=== PATIENT | male | born 1965 | race Caucasian/White ===

== ENCOUNTER → 2018-04-10 16:50 | Outpatient (CLI) | payer BC ==
[~2018-04-10 16:50] MED LIST: BAYER CHEWABLE81 MG PO; BENADRYL25 MG PO; LIPITOR80 MG PO; PLAVIX75 MG PO; PRAVACHOL80 MG PO; TOPROL XL50 MG PO; XANAX0.5 MG PO
[2018-04-10 18:23] LABS: CHOL - HDL RATIO 4.9 ratio (2.3-4.9); LDL-HDL RATIO 3.2 ratio (1.5-3.5)
[2018-04-25 07:20] VITALS: BMI 22.4
== END | disposition home or self-care (01) ==
LOC: D.LABREF 16:50
PROVIDERS: Internal Medicine Cardiovascular Disease
DX: E78.5 Hyperlipidemia, unspecified (principal)

== ENCOUNTER → 2018-04-11 12:26 | Outpatient (CLI) | payer BC ==
--- NOTE | ~2018-04-11 | EC ---
PATIENT:JAMES ZARAGOZA DATE OF SERVICE: 04/11/18 SEX: M MEDICAL RECORD: [id number] DATE OF : 69 [facility] AGE OF PATIENT: 52 ADMISSION DATE: 04/11/18 REFERRING PHYSICIAN: INTERPRETING PHYSICIAN: PAULA SANCHEZ MD ECHOCARDIOGRAM REPORT ECHO CHARGES 4 ECHO COMPLETE Date: 04/11 CLINICAL DIAGNOSIS: OLD [place]/ABN EKG,RBBB,HTN ECHOCARDIOGRAPHIC MEASUREMENTS (adult normal given) AC root (d.<3.7cm) 3.2 cm LV Septum d (<1.2 cm> 1.1 cm Valve Excursion 1.8 cm LV Septum (systole) 1.2 cm Left Atria (s.<4.0cm> 3.3 cm LVPW d(<1.2cm) 1.5 cm RV (d.<2.3cm) 3.5 cm LVPW (sytole) 1.9 cm LV diastole(<5.6CM) 4.9 cm MV E-F(>70mm/sec) cm LV systole 3.6 cm LVOT Diameter 2.3 cm MV exc.(>10mm) 1.8 cm Est.ejection fraction (50-75%) % DOPPLER: LVIT cm/sec A 76.0 cm/sec E 96.0 cm/sec LA cm/sec RVSP 24 mmHg LVOT 94 cm/sec AOP1/2T m/s Asc. Ao 131 cm/sec RVOT 67 cm/sec RA cm/sec PA 97 cm/sec AV Gradient Peak 6.86 mmHg AV Mean 3.79 mmHg AV Area 2.8 cm MV Gradient Peak 5.56 mmHg MV Mean 1.90 mmHg MV Area cm COMMENTS: Catcher Plug: 2 WES PASCUAL Perfume And Toilet Water Maker: 4 Dr. Sanchez TAPE# PACS Pericardial Effusion N DATE OF SERVICE: FINDINGS: 1. Left ventricle has mild left ventricular hypertrophy. Overall, ejection fraction lower limits of normal, approximately 50% to 55% with a hint of mild lateral hypokinesis. Inflow characteristics are normal. 2. The left atrium is normal size, normal function. 3. The right ventricle is dilated with normal function. 4. The aortic valve is normal. 5. The mitral valve is normal. ECHOCARDIOGRAM REPORT [id number] JAMES ZARAGOZA 6. The tricuspid valve is normal. 7. The right atrium is mildly dilated. 8. Pulmonic valve is normal. 9. The pericardium is normal. 10. The IVC is normal sized and collapsed appropriately with a sniff test. CONCLUSIONS: The patient has normal to mildly depressed LV systolic function, which may be influenced by his baseline bundle branch block, creating asynchronous wall motion. TRANSINT:[id number] Voice Confirmation ID: [id number] DOCUMENT ID: [id number] PAULA SANCHEZ MD at 0819 CC: [id number] DICTATION DATE: 04/15/18 0753 LAND SURVEYING SURVEY WORKER: 04/15/18 1238 DEP CLI 04/11/18 [facility] [address] [place] [address]
[2018-04-25 07:20] VITALS: BMI 22.4
== END | disposition home or self-care (01) ==
LOC: D.ECHO 12:26
DX: I25.2 Old myocardial infarction (principal); R94.31 Abnormal electrocardiogram [ECG] [EKG]; E78.5 Hyperlipidemia, unspecified; I10 Essential (primary) hypertension; I45.10 Unspecified right bundle-branch block

== ENCOUNTER → 2018-04-25 06:40 | Outpatient (CLI) | payer BC ==
[~2018-04-25] VITALS: Ht 177.8 cm; Wt 70.9 kg
--- NOTE | ~2018-04-25 | HEMODYNAMI ---
PATIENT:JAMES ZARAGOZA MEDICAL RECORD: [id number] : 69 LOCATION:[facility] ADMISSION DATE: 04/25/18 Generatedon:04/25/20189:05 Patient name: JAMES ZARAGOZA Patient #: [id number] SSN: : 1965 Date of study: 04/25/2018 Page: Of Hemodynamic Procedure Report Patient Data Patient Demographics Procedure consent was obtained First Name: JAMES Gender: Male Last Name: NIK : 1965 Patient #: [id number] Age: 52 year(s) Race: Unknown Additional ID: [id number] Contact details [address]: [address] [place] [address] [facility] State: [place] City: [place] Zip code: [address] Past Medical History Allergies: No known allergies Admission Admission Data Admission Date: 04/25/2018 Admission Time: 6:40 Weight (lbs.): 156 Weight (kg.): 70.76 Lab Results Lab Result Date: 04/25/2018 Lab Result Time: 0:00 Biochemistry Name Units Result Min Max BUN mg/dl 9 --(*---)-- 7 18 Creatinine mg/dl 0.8 --(-*--)-- 0.6 1.3 CBC Name Units Result Min Max Hemoglobin g/dl 17.4 --(---*)-- 13.5 17.5 Procedure Procedure Types Cath Procedure Diagnostic Procedure [facility] w/Coronaries Sedation Charges Moderate Sedation up to 15 minutes PCI Procedure Coronary Stent Coronary Stent Initial Procedure Description Procedure Date Procedure Date: 04/25/2018 Procedure Start Time: 8:40 Procedure End Time: 9:04 Procedure Staff Name Function Frederick Simmons MD Performing Physician Alicia Noguera RT Monitor Tova Brown RT Scrub Lee Charles RN Nurse Procedure Data Cath Procedure Fluoroscopy Diagnostic fluoroscopy Total fluoroscopy Time: 3.4 time: 3.4 min min Diagnostic fluoroscopy Total fluoroscopy dose: 396 dose: 396 mGy mGy Contrast Material Contrast Material Type Amount (ml) Isovue 370 40 Entry Location Entry Primary Successful Side Size Upsize Upsize Entry Closure Succes sful Closure Location (Fr) 1 (Fr) 2 (Fr) Remarks Device Remarks Femoral Right 5 Fr 6 Fr Exoseal artery Short Estimated blood loss: 10 ml Diagnostic catheters Device Type Used For End Catheter Placement MULTIPACK JL 4.0 5Fr Left Coronary catheter Angiography MULTIPACK 3DRC 5Fr Right Coronary catheter Angiography MULTIPACK Pigtail 5 Fr LV Angiography catheter Procedure Complications No complications Procedure Medications Medication Administration Route Dosage 0.9% NaCl I.V. 100 ml/hr Oxygen etCO2 Nasal cannula 2 l/min Heparin Flush Bag added to field 2 bags (1000units/500ml NS) Lidocaine 2% added to field 20 Versed I.V. 1 mg Fentanyl I.V. 50 mcg Versed I.V. 1 mg Angiomax (bolus) I.V. 10.5 ml Angiomax Drip I.V. drip 24.5 ml/hr (250mg/50ml NS) (Standard) Plavix P.O. 300 mg Angiomax Drip wasted 24.5 ml/hr (250mg/50ml NS) (Standard) Hemodynamics Rest HGB: 17.4 (g/dl) Heart Rate: 65 (bpm) Pressure Samples Time Site Value (mmHg) Purpose Heart Use Rate(bpm) 8:49 LV 108/-9,11 EDP 65 Gradients Valve Time Site Site Mean SEP/DFP Peak To Heart Use 1 2 (mmHg) (sec/min) Peak Rate (mmHg) (bpm) Aortic 8:49 LV AO 75 Snapshots Pre Cath Intra NCS Post Cath Vital Signs Time Heart Resp SPO2 etCO2 NIBP Rhythm Pain Sedation Rate (ipm) (%) (mmHg) (mmHg) Status Level (bpm) 8:29:48 62 15 100 33 129/74(87) NSR 0 (11) 10(A) , No pain 8:34:25 61 17 100 33 119/75(90) NSR 0 (11) 10(A) , No pain 8:39:01 69 16 100 32.2 116/69(98) NSR 0 (11) 10(A) , No pain 8:43:40 66 14 99 31.4 116/65(90) NSR 0 (11) 10(A) , No pain 8:48:16 68 12 98 35.2 112/65(79) NSR 0 (11) 10(A) , No pain 8:52:55 66 14 98 34.5 117/65(80) NSR 0 (11) 10(A) , No pain 8:57:32 71 13 98 33.7 111/65(80) NSR 0 (11) 10(A) , No pain 9:02:04 67 14 99 36 117/74(88) NSR 0 (11) 10(A) , No pain Medications Time Medication Route Dose Verified Delivered Reason Notes Effectiveness by by 8:28:19 0.9% NaCl I.V. 100 Lee Lee Per physician ml/hr Araceli Charles RN RN 8:28:30 Oxygen etCO2 2 Lee Lee Per physician Nasal l/min Araceli Charles cannula RN RN 8:28:42 Heparin Flush added 2 Lee Lee used for Bag to bags Araceli Charles procedure (1000units/500ml field RN RN NS) 8:28:53 Lidocaine 2% added 20ml Lee Lee for local to vial Araceli Charles anesthetic field RN RN 8:35:57 Versed I.V. 1 mg Lee Lee for sedation Araceli Charles RN RN 8:36:07 Fentanyl I.V. 50 Lee Lee for sedation mcg Araceli Charles RN RN 8:38:30 Versed I.V. 1 mg Lee Lee for sedation Araceli Charles RN RN 8:54:15 Angiomax (bolus) I.V. 10.5 Lee Lee for ml Araceli Charles anticoagulation RN RN 8:54:30 Angiomax Drip I.V. 24.5 Lee Lee for (250mg/50ml NS) drip ml/hr Araceli Charles anticoagulation (Standard) RN RN 9:01:53 Plavix P.O. 300 Lee Lee for mg Araceli Charles antiplatelet RN RN therapy 9:03:01 Angiomax Drip wasted 24.5 Lee Lee to sharp's (250mg/50ml NS) ml/hr Araceli Charles (Standard) RN food assembler kitchen Log Time Note 8:09:48 Signed procedure consent form obtained from patient. 8:09:50 Time tracking: Regular hours (M-F 7:00 - 5:00) 8:09:53 Plan of Care:Hemodynamics will remain stable., Cardiac rhythm will remain stable., Comfort level will be maintained., Respiratory function will remain adequate., Patient/ family verbilizes understanding of procedure., Procedure tolerated without complication., Recovers from procedure without complications.. 8:10:01 H&P Date Dictated: 04/24/2018 Within 30 days and on chart., H&P Addendum completed by physician on day of procedure. (MUST COMPLETE FOR ALL OUTPATIENTS). 8:10:10 Patient allergic to No known allergies 8:11:20 Lab Result : BUN 9 mg/dl 8:11:20 Lab Result : Hemoglobin 17.4 g/dl 8:11:20 Lab Result : Creatinine 0.8 mg/dl 8:12:55 Alicia Counts RT(R) sent for patient. Start room use. 8:15:03 Patient Weight : 156 lbs 8:21:10 Patient received from Pre/Post Procedure Room to CCL 1 Alert and oriented. Tansferred to table in Supine position. 8:21:12 Warm blankets applied, and erin hugger turned on for patient comfort. 8:21:13 Correct patient and procedure confirmed by team. 8:21:14 ECG and BP/O2 sat monitors applied to patient. 8:28:19 0.9% NaCl 100 ml/hr I.V. was administered by Lee Charles RN; Per physician; 8:28:30 Oxygen 2 l/min etCO2 Nasal cannula was administered by Lee Charles RN; Per physician; 8:28:42 Heparin Flush Bag (1000units/500ml NS) 2 bags added to field was administered by Lee Charles RN; used for procedure; 8:28:53 Lidocaine 2% 20ml vial added to field was administered by Lee Charles RN; for local anesthetic; 8:28:58 Vital chart was started 8:31:54 Baseline sample Acquired. 8:31:57 Rhythm: sinus rhythm 8:31:58 Full Disclosure recording started 8:32:00 Pre-procedure instructions explained to patient. 8:32:01 Pre-op teaching completed and patient verbalized understanding. 8:32:04 Family in patients room. 8:32:06 Patient NPO since Midnight. 8:32:08 Is the patient allergic to Iodine/contrast media? No. 8:32:10 Is patient on blood thinner?Yes 8:32:12 ACC The patient was administered the following blood thiners within the last 24 hours: ACCPlavix 8:32:14 Patient diabetic? No. 8:32:18 Previous problem with sedation/anesthesia? No ? 8:32:20 Snore? Yes 8:32:21 Sleep apnea? No 8:32:23 Deviated septum? No 8:32:24 Opens mouth fully? Yes 8:32:25 Sticks out tongue? Yes 8:32:27 Airway obstruction? No ? 8:32:29 Dentures? No ? 8:32:34 Pre procedure: right dorsailis pedis pulse 2+ Normal; easily identifiable; not easily obliterated 8:32:37 Patient pain scale 0/10 ?. 8:32:46 IV patent on arrival in left hand with 0.9% NaCl at [facility]. 8:32:50 Lab results completed and on chart. 8:32:52 Right groin area was prepped with chlora-prep and draped in sterile fashion 8:32:59 Modified Alexsander's test Ulnar > 7 seconds. 8:33:02 Alarms reviewed by R. N. 8:33:02 Sharps counted by scrub and verified by R.N. 8:35:31 Final Timeout: patient, procedure, and site verified with staff and physician. All members of the team are in agreement. 8:35:32 Right groin site verified by team. 8:35:35 Physical assessment completed. ASA score P 2 - A patient with mild systemic disease as per Frederick Simmons MD. 8:35:38 Sedation plan: IV Moderate Sedation Medication:Versed, Fentanyl 8:35:57 Versed 1 mg I.V. was administered by Lee Charles RN; for sedation; 8:36:07 Fentanyl 50 mcg I.V. was administered by Lee Charles RN; for sedation; 8:38:00 Zero performed for pressure channel P1 8:38:04 Zero performed for pressure channel P1 8:38:07 Zero performed for pressure channel P1 8:38:10 Zero performed for pressure channel P1 8:38:13 Zero performed for pressure channel P1 8:38:30 Versed 1 mg I.V. was administered by Lee Charles RN; for sedation; 8:39:09 Zero performed for pressure channel P1 8:39:18 Use device set Femoral Dx 8:39:19 ACIST Syringe (70249) opened to sterile field. 8:39:19 Bag Decanter (2001S) opened to sterile field. 8:39:20 Medline Cath Pack ([id number]) opened to sterile field. 8:39:21 DIAGNOSTIC WIRE .035 260cm J wire (073221) opened to sterile field. 8:39:21 ACIST Hand Control (98839) opened to sterile field. 8:39:22 ACIST Manifold (04157) opened to sterile field. 8:39:23 DIAGNOSTIC Multipack 5Fr catheter set (QG3678) opened to sterile field. 8:39:24 Tegaderm 4 x 4 (1626W) opened to sterile field. 8:39:24 PERCUTANEOUS ENTRY 19GA needle opened to sterile field. 8:39:26 SHEATH Prelude 5Fr 0.035 (RAO-0U-27-035) opened to sterile field. 8:39:38 Procedure started. 8:40:09 Local anesthetic to right femoral artery with Lidocaine 2% by Frederick Simmons MD.INITIAL ACCESS ONLY 8:40:44 Access obtained with 4Fr micropunture. 8:42:03 A 5 Fr sheath was inserted into the Right Femoral artery 8:42:54 A MULTIPACK JL 4.0 5Fr catheter was advanced over the wire and used for Left Coronary Angiography. 8:44:57 Catheter removed. 8:45:57 A MULTIPACK 3DRC 5Fr catheter was advanced over the wire and used for Right Coronary Angiography. 8:47:15 Use device set NORRED PCI 8:47:20 INFLATOR Merit BasixCompak (WL4381) opened to sterile field. 8:47:21 COPILOT Valve Control (7254521) opened to sterile field. 8:47:23 BMW 190cm [place] 2 J wire (4204733O) opened to sterile field. 8:47:25 SHEATH Prelude 6Fr 0.035 (HUK-9L-74-035) opened to sterile field. 8:47:34 Catheter removed. 8:47:40 A MULTIPACK Pigtail 5 Fr catheter was advanced over the wire and used for LV Angiography. 8:49:07 LV gram done using SALAZAR 8:49:10 LV hemodynamics recorded. 8:49:14 Injector settings: Ml/sec: 12, Volume: 8, 8:49:43 Catheter removed. 8:49:51 Sheath upsized to a 6 Fr Short. 8:51:23 GUIDE 6FR ART 3.5 SH catheter ([id number]) opened to sterile field. 8:52:28 6 Fr ART 3.5 SH guide catheter was inserted over the wire 8:54:15 Angiomax (bolus) 10.5 ml I.V. was administered by Lee Charles RN; for anticoagulation; 8:54:24 BMW wire advanced. 8:54:30 Angiomax Drip (250mg/50ml NS) (Standard) 24.5 ml/hr I.V. drip was administered by Lee Charles RN; for anticoagulation; 8:58:25 Place stent Inflation Number: 1 A SKY RX 3.0 x 30 stent ([id number]) was prepped and advanced across the Mid RCA. The stent was deployed at 13 CHRISTOPHE for 0:11 (min:sec). 8:59:48 Stent catheter was removed intact over wire. 8:59:48 Wire removed. 8:59:49 Guide catheter removed. 8:59:57 Sheath removed intact; hemostasis achieved with Exoseal to the Right Femoral artery. 8:59:59 Procedure ended.(Physican Out) 9:00:13 EXOSEAL 6Fr (EX600) opened to sterile field. 9:00:24 Fluoroscopy time 03.40 minutes. 9:00:28 Fluoroscopy dose: 396 mGy 9:00:28 Flurop Dose total: 396 9:00:31 Contrast amount:Isovue 370 40ml. 9:00:32 Sharps counted by scrub and verified by R.N. 9:00:37 Insertion/operative site no bleeding no hematoma. 9:00:40 Post-op/insertion site Right Femoral artery dressed using a 4 x 4 and Tegaderm. 9:00:43 Post right femoral artery:stable, clean and dry 9:00:45 Post Procedure Pulses reassessed and unchanged 9:00:48 Post-procedure physical assessment completed. ASA score P 2 - A patient with mild systemic disease as per Frederick Simmons MD. 9:00:50 Post procedure rhythm: unchanged. 9:00:53 Estimated blood loss: 10 ml 9:00:54 Post procedure instruction explained to patient.Patient verbalizes understanding. 9:00:55 Patient needs reinforcement of post procedure teaching. 9:01:50 Procedure type changed to Cath procedure, Diagnostic procedure, LHC, LHC w/Coronaries, Sedation Charges, Moderate Sedation up to 15 minutes, PCI procedure, Coronary Stent, Coronary Stent Initial 9:01:53 Plavix 300 mg P.O. was administered by Lee Charles RN; for antiplatelet therapy; 9:01:56 Procedure Complication : No complications 9:01:59 See physician's report for complete and final results. 9:02:57 MICROPUNCTURE 4FR Cook (Z41030) opened to sterile field. 9:03:01 Angiomax Drip (250mg/50ml NS) (Standard) 24.5 ml/hr wasted was administered by Lee Charles RN; to sharp's; 9:03:16 Procedure and supply charges have been captured, reviewed, submitted and are correct. 9:04:32 Vital chart was stopped 9:04:34 Report given to Pre/Post Procedure Room. 9:04:37 Patient transfered to Pre/Post Procedure Room with Stretcher. 9:04:46 Procedure ended. 9:04:46 Full Disclosure recording stopped 9:05:17 End room use (Document Last) Intervention Summary Intervention Notes Time ActionType Lesion and Equipment Used Action# Pressure Duration Attributes 8:58:25 Place stent Mid RCA SKY RX 3.0 x 1 13 00:11 30 stent ([id number]) Device Usage Item Name Manufacture Quantity Catalog Number Hospital Part Current Minimal Lot# / Charge Number Stock Stock Serial# Code ACIST Syringe Acist 1 12187 710030 553034 670923 20 (09500) Medical Systems Inc Bag Decanter Microtek 1 761793 78637 502743 5 () Medical Inc. Medline Cath Cardinal 1 [id number] 071673 09085 596970 5 Pack Health ([id number]) DIAGNOSTIC WIRE St Shashank 1 457033 935040 355087 573873 30 .035 260cm J wire (508789) ACIST Hand Acist 1 29722 395019 475234 948764 5 Control (20680) Medical Systems Inc ACIST Manifold Acist 1 57368 035882 122829 253109 5 (62845) Medical Systems Inc DIAGNOSTIC Cardinal 1 WQ4325 494609 67944 504933 30 Multipack 5Fr Health catheter set (TT5905) Tegaderm 4 x 4 3M 1 1626W 108038 280296 998911 5 (1626W) PERCUTANEOUS Cook Medical 1 V18706 787046 283908 5 ENTRY 19GA needle SHEATH Prelude Merit 1 XFQ-0G-23-035 176075 250025 867964 5 5Fr 0.035 Medical (ULE-7M-02-035) MULTIPACK JL Cardinal 1 482430 5 4.0 5Fr Health catheter MULTIPACK 3DRC Cardinal 1 686712 5 5Fr catheter Health INFLATOR Merit Merit 1 BX0751 895197 645043 521787 15 BasixCompak Medical (BT6166) COPILOT Valve Gomez 1 5113636 269151 103840 861853 5 Control Vascular (8827300) BMW 190cm Gomez 1 [id number] 261624 37240 030970 5 [place] 2 J Vascular wire (4873213S) SHEATH Prelude Merit 1 GIA-8A-41-35 812057 8373554 894325 5 6Fr 0.035 Medical (IBB-4E-67-035) MULTIPACK Cardinal 1 084609 5 Pigtail 5 Fr Health catheter GUIDE 6FR ART Thompson 1 [id number] 917078 117747 746865 0 3.5 SH catheter Scientific ([id number]) SKY RX 3.0 x Medtronic 1 [id number] 306183 9788288 990754 5 [id number] 30 stent ([id number]) EXOSEAL 6Fr Cardinal 1 EX600 001821 451107 418989 10 (EX600) Health MICROPUNCTURE [facility] 1 B86719 918274 557022 230301 5 4FR elicit (R35327) Signature Audit [place] Stage Time Signature Unsigned Intra-Procedure 04/25/2018 Alicia 9:05:27 AM Counts RT(R) Signatures Monitor : Alicia Signature : Counts RT Date : Time : [facility] [address] [place] [address]
[2018-04-25 07:20] VITALS: BP 120/73; Ht 177.8 cm; Wt 70.9 kg
[2018-04-25 07:20] LABS: BASOPHILS 0.3 % (0-2); EOSINOPHILS 4.7 % (0-7); HEMOGLOBIN 17.4 g/dL (13.5-17.5); IMMATURE GRANULOCYTES 0.4 % (0-5); LYMPHOCYTES 35.1 % (15-50); MCH 31.2 pg (26.0-34.0); MCHC 34.1 g/dL (31.0-37.0); MCV 91.6 fL (80.0-100.0); MEAN PLATELET VOLUME 10.2 fL (7.4-10.4); MONOCYTES 9.3 % (2-11); NEUTROPHILS 50.2 % (40-80); PLATELET COUNT 303 10x3/uL (130-400); RBC 5.57 10x6/uL (4.20-6.10); RDW 13.6 % (11.5-14.5); WBC 12.5 10x3/uL (4.8-10.8)
[2018-04-25 07:41] LABS: CALC OSMOLALITY 281 mosm/kg (275-300); CALCIUM 8.8 mg/dL (8.5-10.1); CARBON DIOXIDE 25.3 mmol/L (21.0-32.0); CHLORIDE - SERUM 108 mmol/L (98-107); CREATININE - SERUM 0.8 mg/dL (0.6-1.3); GLUCOSE 93 mg/dL (74-106); POTASSIUM - SERUM 4.5 mmol/L (3.5-5.1); SODIUM 142 mmol/L (136-145); UREA NITROGEN 9 mg/dL (7-18); eGFR NON AFRICAN AMERICAN > 90 mL/min (90-120)
== END | disposition home or self-care (01) ==
LOC: D.CATH 06:40
PROVIDERS: Internal Medicine Cardiovascular Disease
DX: I25.119 Atherosclerotic heart disease of native coronary artery with unspecified angina pectoris (principal); R94.39 Abnormal result of other cardiovascular function study; I25.2 Old myocardial infarction; Z01.812 Encounter for preprocedural laboratory examination

== ENCOUNTER → 2018-05-19 22:10 | Outpatient (CLI) | payer BC ==
[2018-04-25 07:20] VITALS: BMI 22.4
[2018-05-19 23:41] LABS: CHOL - HDL RATIO 4.7 ratio (2.3-4.9); LDL-HDL RATIO 2.7 ratio (1.5-3.5)
== END | disposition home or self-care (01) ==
LOC: D.LABREF 22:10
PROVIDERS: Internal Medicine Cardiovascular Disease
DX: E78.5 Hyperlipidemia, unspecified (principal)

== ENCOUNTER → 2018-12-08 10:03 | Outpatient (CLI) | payer BC ==
[2018-04-25 07:20] VITALS: BMI 22.4
== END | disposition home or self-care (01) ==
LOC: D.HCCARDIO 10:00
DX: I25.10 Atherosclerotic heart disease of native coronary artery without angina pectoris (principal)

== ENCOUNTER 2019-07-07 00:50 | Emergency (ER) | payer BC ==
[~2019-07-07] VITALS: Ht 177.8 cm; Wt 60.5 kg
[2019-07-07 01:01] VITALS: Ht 177.8 cm; Wt 60.5 kg
[2019-07-07] MEDS ORDERED: FLAGYL500 MG PO (01:03)
[2019-07-07] MEDS ORDERED: CIPRO500 MG PO (01:03)
[2019-07-07 02:26] VITALS: BP 120/80
== END 2019-07-07 02:27 | disposition home or self-care (01) ==
LOC: D.ER 00:50
DX: G43.909 Migraine, unspecified, not intractable, without status migrainosus (principal)

== ENCOUNTER → 2019-09-08 09:48 | Outpatient (CLI) | payer BC ==
[2019-07-07 01:01] VITALS: BMI 19.1
[~2019-09-08 09:48] MED LIST changes: +CIPRO500 MG PO; +FLAGYL500 MG PO
--- NOTE | 2019-09-14 13:29 | EC ---
PATIENT:JAMES ZARAGOZA DATE OF SERVICE: 09/08/19 SEX: M MEDICAL RECORD: [id number] DATE OF : 69 [facility] AGE OF PATIENT: 53 ADMISSION DATE: 09/08/19 REFERRING PHYSICIAN: INTERPRETING PHYSICIAN: KIM BARBER MD ECHOCARDIOGRAM REPORT ECHO CHARGES 4 ECHO COMPLETE Date: 09/08/19 CLINICAL DIAGNOSIS: CAD HX HTN ECHOCARDIOGRAPHIC MEASUREMENTS (adult normal given) AC root (d.<3.7cm) 2.7 cm LV Septum d (<1.2 cm> 1.5 cm Valve Excursion 1.3 cm LV Septum (systole) 1.6 cm Left Atria (s.<4.0cm> 2.7 cm LVPW d(<1.2cm) 1.7 cm RV (d.<2.3cm) 3.7 cm LVPW (sytole) 1.8 cm LV diastole(<5.6CM) 4.7 cm MV E-F(>70mm/sec) cm LV systole 2.6 cm LVOT Diameter 1.9 cm MV exc.(>10mm) 1.6 cm Est.ejection fraction (50-75%) % DOPPLER: LVIT cm/sec A 73.0 cm/sec E 93.0 cm/sec LA cm/sec RVSP 22 mmHg LVOT 97 cm/sec AOP1/2T m/s Asc. Ao 135 cm/sec RVOT 65 cm/sec RA cm/sec PA 105 cm/sec AV Gradient Peak 7.27 mmHg AV Mean 3.74 mmHg AV Area 1.8 cm MV Gradient Peak 3.46 mmHg MV Mean 1.53 mmHg MV Area cm COMMENTS: Esol Teacher: 2 WES PASCUAL Grey Washer: 3 Dr. Noe TAPE# PACS Pericardial Effusion N DATE OF SERVICE: Adequate 2D, color flow, spectral Doppler, and M-mode. LVH is present. LV internal dimensions are normal. Wall motion is normal. EF is greater than or equal to 55%. Aortic valve is tricuspid. No evidence of stenosis by Doppler interrogation. Left atrium is normal. Mitral valve shows no prolapse. Trace MR. Right-sided chambers grossly normal. Trace TR. TRANSINT:[id number] Voice Confirmation ID: [id number] DOCUMENT ID: [id number] ECHOCARDIOGRAM REPORT [id number] JAMES ZARAGOZA KIM BARBER MD at 1329 CC: [id number] DICTATION DATE: 09/10/19 1309 RESORT HOST: 09/10/19 1325 DEP CLI 09/08/19 [place] [address] [place] [address]
== END | disposition home or self-care (01) ==
LOC: D.HCCECHO 09:48
PROVIDERS: ATTEND Internal Medicine Interventional Cardiology
DX: I25.10 Atherosclerotic heart disease of native coronary artery without angina pectoris (principal)